=== PATIENT | female | born 1945 | race African-American/Black ===

== ENCOUNTER 2017-04-20 15:36 | Emergency (ER) | payer MEDICARE ==
[~2017-04-20] VITALS: Ht 162.6 cm; Wt 59.0 kg
[2017-04-20 15:55] VITALS: BP 125/60
[2017-04-20] MEDS ORDERED: IBUP-1060 PO (16:09)
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
== END 2017-04-20 16:21 | disposition home or self-care (01) ==
LOC: EDBD 15:36 → ER 15:36
DX: H92.02 Otalgia, left ear (principal)
CPT/HCPCS: 99282